=== PATIENT | male | born 1950 | race Caucasian/White ===

== ENCOUNTER 2017-03-02 06:57 | Day surgery (SDC) | payer OTHER ==
[~2017-03-02] VITALS: Ht 182.9 cm; Wt 93.0 kg
[2017-03-02 07:47] VITALS: BP 143/94
[2017-03-02 10:41] VITALS: BP 139/75
== END 2017-03-02 10:35 | disposition home or self-care (01) ==
LOC: DS 06:57 → GI 10:30 → OR 10:30 → DS 10:35 → GI 10:45
PROVIDERS: Internal Medicine
PROC: 0DBP8ZZ Excision of Rectum, Via Natural or Artificial Opening Endoscopic (ICD-10-PCS; 2017-03-02)
PROC: 0DBL8ZZ Excision of Transverse Colon, Via Natural or Artificial Opening Endoscopic (ICD-10-PCS; principal; 2017-03-02 10:45)
DX: D12.3 Benign neoplasm of transverse colon (principal); K62.1 Rectal polyp; K64.8 Other hemorrhoids; K57.90 Diverticulosis of intestine, part unspecified, without perforation or abscess without bleeding; E11.9 Type 2 diabetes mellitus without complications; Z86.718 Personal history of other venous thrombosis and embolism; Z79.01 Long term (current) use of anticoagulants; Z79.4 Long term (current) use of insulin; Z79.84 Long term (current) use of oral hypoglycemic drugs; Z68.32 Body mass index [BMI] 32.0-32.9, adult
CPT/HCPCS: 45378; 82962; J1200; J1610; J2250; J2310; J3010; J3490